=== PATIENT | male | born 1965 | race American Indian/Alaskan Native ===

== ENCOUNTER 2018-09-25 08:36 | Day surgery (SDC) | payer BC ==
[~2018-09-25 08:36] MED LIST: NACL 0.9% 1000 ML 1,000 ML IV SCH
[2018-09-25] MEDS ORDERED: WATER FOR IRRIG STERILE IR ONE (11:23)
[2018-09-25] MEDS ORDERED: DIPRIVAN 10 MG/ML IV ONE ×2 (11:28→11:29)
[2018-09-25] MEDS ORDERED: XYLOCAINE MPF 2% ONE (11:30)
--- NOTE | 2018-09-25 12:12 | Procedure Note ---
Date of procedure: 09/25/18 Pre-op diagnosis: GERD/ Colon Polyp Screedning/F/H/O Cancer Post-op diagnosis: other (Mild,Distal Esophagitis/R/O Eosinophilic Esophagitis/Gastritis/R/o Celaic Disease/Solitary Rectal Polyp (removed by snare excision but retrieved)/ Prep was fair to poor.) Procedure: EGD with Biopsy/Colonoscopu with Cold Snare Polypectomy Anesthesia: MAC Surgeon: PEACE GONZALEZ Estimated blood loss: minimal Pathology: list Specimen disposition: to lab Condition: stable Disposition: same day (Treat with PPI, avod aspirin and NSAID for 5 days and follow up in 1 to 2 weeks ([phone]).)
[2018-09-25 12:49] VITALS: BP 128/85
--- NOTE | 2018-09-25 13:03 | Operative Report ---
PROCEDURE: EGD with biopsy. INDICATIONS: A 53-year-old white male with an underlying history of diabetes, hypertension and possible history of angioedema. He does have a family history of cancer. Father had a history of lymphoma. Mother had lung cancer. EGD was done to assess for his esophagitis and possible esophagitis, gastritis and GERD symptoms. DESCRIPTION OF PROCEDURE: The procedure was done after getting informed consent with MAC anesthesia. Instrument was passed through the hypopharynx into the esophagus, which did show some mild distal esophagitis. Stomach showed some mild gastritis. The pylorus was patent. The duodenum in the first and second portion appeared normal. Biopsy was done from the second part of the duodenum to rule out for possible celiac disease. Additional biopsy was also done from the gastric antrum, gastric body and angularis incisura for H. pylori and atrophic gastritis and from the mid esophagus for eosinophilic esophagitis. There is minimal bleeding associated with the procedure. No complications associated with the procedure. ASSESSMENT: Gastroesophageal reflux disease, mild distal esophagitis, gastritis, rule out celiac disease, history of angioedema. Plan is to treat the patient with PPI, have the patient avoid aspirin and aspirin-related products for the next few days. A histamine level will also be done if possible and a colonoscopy will be done as part of colon polyp screening. The procedure was done in the GI lab with assistance and presence of the GI lab team, which included ROSA Christianson as well as Tiffani pepe and the assistance of anesthesia. JOB# [id number] ZINA/DAYANA
--- NOTE | 2018-09-25 13:07 | Operative Report ---
COLONOSCOPY INDICATIONS: A 53-year-old -[place]ian gentleman with an underlying history of diabetes, hypertension, possible history of angioedema. He has a family history of cancer. The patient's father had a history of lymphoma. Mother had lung cancer. DESCRIPTION OF PROCEDURE: Colonoscopy was done after getting informed consent with MAC anesthesia. Initial rectal exam was unremarkable. Instrument was passed through the rectum onto the cecum, which was identified by the ileocecal valve and the appendiceal orifice. Visualization was fair to poor. The mucosa was washed with copious amounts of water. No significant pathology was noted involving the proximal colon, the transverse colon, descending colon, and the sigmoid. In the rectum, there was a 10 mm polyp, possibly hyperplastic that was removed by cold biopsy, but could not be retrieved because the prep was very poor in this area. There is minimal bleeding associated with the polypectomy site and no complications associated with the procedure. ASSESSMENT: Family history of cancer, colon polyps screening, solitary rectal polyp, which was snare excised, but not retrieved. Minor internal hemorrhoid. PLAN: The patient will be asked to avoid aspirin and aspirin-related products for the next few days, treated with PPI. Histamine level will be checked if possible. The patient will be asked to follow up in the office in 1-2 weeks' time. The procedure was done in the GI lab with assistance of the GI lab team, which included ROSA Christianson as well as Tiffani pepe and the assistance of anesthesia. The patient was asked to follow up in 1-2 weeks' time and avoid aspirin and aspirin-related products for the next 5 days. JOB# [id number] ZINA/DAYANA
== END 2018-09-25 08:37 | disposition home or self-care (01) ==
LOC: GIO 08:36
DX: Z12.11 Encounter for screening for malignant neoplasm of colon (principal); K63.5 Polyp of colon; K62.1 Rectal polyp; K21.0 Gastro-esophageal reflux disease with esophagitis; E11.9 Type 2 diabetes mellitus without complications; I10 Essential (primary) hypertension; K64.8 Other hemorrhoids; K29.70 Gastritis, unspecified, without bleeding; Z80.8 Family history of malignant neoplasm of other organs or systems; Z80.1 Family history of malignant neoplasm of trachea, bronchus and lung; Z79.899 Other long term (current) drug therapy
CPT/HCPCS: 36415; 43239; 45380; 45385; 82962; 88305; 88342; J2704; J7030